=== PATIENT | female | born 2000 | race Hispanic/Latino ===

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

== ENCOUNTER 2021-10-24 15:21 | Emergency (ER) | payer OTHER ==
[~2021-10-24] VITALS: Ht 157.5 cm; Wt 56.5 kg
[2021-10-24] MEDS ORDERED: HYDROCODONE/APAP 5MG-325MG TAB PO ONE ×2 (16:00)
[2021-10-24] MEDS ORDERED: HYDROCODONE/APAP 5MG-325MG TAB ONE (16:17)
[2021-10-24] MEDS ORDERED: IBUPROFEN600 MG PO (16:45)
[2021-10-24] MEDS ORDERED: CYCLOBENZAPRINE5 MG PO (16:46)
== END 2021-10-24 16:54 | disposition home or self-care (01) ==
LOC: FSED 16:06
DX: M54.2 Cervicalgia (principal); M25.561 Pain in right knee; M62.838 Other muscle spasm; V43.62XA Car passenger injured in collision with other type car in traffic accident, initial encounter; Y92.488 Other paved roadways as the place of occurrence of the external cause
CPT/HCPCS: 99283